=== PATIENT | male | born 1955 | race Caucasian/White ===

== ENCOUNTER 2017-01-12 10:22 | Inpatient (IN) | payer BC ==
[2017-01-12] VITALS (8 sets, daily range): BP systolic 96–113; BP diastolic 50–80; PULSE 76–87; TEMP 98.4–98.9
[~2017-01-12] VITALS: Ht 172.7 cm; Wt 72.7 kg
[~2017-01-12 10:22] MED LIST: ADVAIR IH; ASPIRIN 32325 MG/TAB PO; CALCIUM 600600 M2 PO; CALCIUM PO; CENTRUM SILVER1 CTB PO; CENTRUM SILVER1 TAB PO; CIPRO 500MG TA500 MG PO; DIOVAN 80MG80 MG PO; DIOVAN80 MG PO; GLUCOSAMINE & C1 CA1 PO; GLUCOSAMINE & C1 TER PO; LASIX 20MG TABL20 MG PO; LUPRON DEPOT45 MG INJ; PERCOCET 325 MG1 TA2 PO; SENOKOT S 50 MG1 TAB PO; XARELTO15 MG PO; XARELTO20 MG PO
[2017-01-12] MEDS ORDERED: PREDNISONE10 MG PO (10:29)
[2017-01-12 11:14] LABS: ADJUSTED CALCIUM 9.3 mg/dL (8.4-10.2); ALBUMIN 3.6 gm/dL (3.5-5.0); BILIRUBIN,TOTAL 0.7 mg/dL (0.0-1.0); CREATININE, serum 1.33 mg/dL (0.66-1.25); POTASSIUM 3.4 mmol/L (3.4-5.0); TOTAL PROTEIN 6.1 gm/dL (6.4-8.2)
[2017-01-12 11:19] LABS: MEAN CELL VOLUME 82 fl (80.0-100.0); MEAN CORPUSCULAR HGB CONC 31 g/dl (33.0-37.0); MEAN PLATELET VOLUME 11.3 fl (7.4-10.4); PLATELET COUNT 197 K/mm3 (130-400); RED BLOOD COUNT 3.08 M/mm3 (4.20-5.60); REDCELL DISTRIBUTION WIDTH-CV 14.9 % (11.5-14.5); WHITE BLOOD COUNT 8.9 K/mm3 (4.8-10.8)
[2017-01-12 11:32] LABS: ADD PATHOLOGY DIFF REVIEW NO; HEMATOCRIT 25.3 % (42.0-52.0); HEMOGLOBIN 7.9 g/dl (13.5-18.0); MEAN CORPUSCULAR HEMOGLOBIN 26 pg (27.0-31.0)
[2017-01-12 11:57] LABS: BAND 35 % (0-10); NEUTROPHILS 56 % (42.0-75.2); TOTAL CELLS COUNTED 100
[2017-01-12 12:20] LABS: PH 5 (5-8); SQUAMOUS EPITHELIAL 0-2 /hpf; URINE APPEARANCE Clear; URINE BACTERIA Rare /hpf; URINE BILIRUBIN Negative (NEGATIVE); URINE BLOOD 3+ (NEGATIVE); URINE COLOR Amber; URINE GLUCOSE Negative (NEGATIVE); URINE KETONE Trace (NEGATIVE); URINE RBC >50 /hpf; URINE UROBILINOGEN Negative (NEGATIVE); URINE WBC 20-50 /hpf
[2017-01-13 04:07] VITALS: BP 120/88; PULSE 76; TEMP 99.4
[2017-01-13 07:38] VITALS: BP 129/66; PULSE 71; TEMP 99.2
[2017-01-13 11:19] VITALS: BP 119/72; PULSE 74; TEMP 98.6
[2017-01-13 11:54] LABS: ADD PATHOLOGY DIFF REVIEW NO
[2017-01-13 12:06] LABS: MEAN CELL VOLUME 82 fl (80.0-100.0); MEAN CORPUSCULAR HGB CONC 32 g/dl (33.0-37.0); MEAN PLATELET VOLUME 11.1 fl (7.4-10.4); PLATELET COUNT 154 K/mm3 (130-400); REDCELL DISTRIBUTION WIDTH-CV 15.9 % (11.5-14.5); WHITE BLOOD COUNT 7.2 K/mm3 (4.8-10.8)
[2017-01-13 12:07] LABS: HEMATOCRIT 27.9 % (42.0-52.0); HEMOGLOBIN 8.8 g/dl (13.5-18.0); MEAN CORPUSCULAR HEMOGLOBIN 26 pg (27.0-31.0)
[2017-01-13 12:09] LABS: CALCIUM 7.8 mg/dL (8.4-10.2); CREATININE, serum 0.76 mg/dL (0.66-1.25); MAGNESIUM 1.8 mg/dL (1.6-2.3); POTASSIUM 3.3 mmol/L (3.4-5.0)
[2017-01-13 14:05] LABS: BAND 26 % (0-10); NEUTROPHILS 69 % (42.0-75.2); TOTAL CELLS COUNTED 100
[2017-01-13 14:06] LABS: ANISOCYTOSIS 1+; PLATELET ESTIMATE NORMAL (NORMAL)
[2017-01-13] MEDS ORDERED: PRILOSEC 20MG20 MG PO (14:25)
[2017-01-13] MEDS ORDERED: OMNICEF 300MG300 MG PO (14:25)
== END 2017-01-13 16:00 | disposition home or self-care (01) | DRG 872 ==
LOC: COL.ER 10:22 → MEDICAL 12:42
PROVIDERS: Emergency Medicine; Internal Medicine
DX: A41.9 Sepsis, unspecified organism (principal); N39.0 Urinary tract infection, site not specified; N17.9 Acute kidney failure, unspecified; N13.6 Pyonephrosis; C61 Malignant neoplasm of prostate; D50.0 Iron deficiency anemia secondary to blood loss (chronic); I10 Essential (primary) hypertension; J45.909 Unspecified asthma, uncomplicated
CPT/HCPCS: 99239; J0696; J7030; J7512; P9016

== ENCOUNTER 2017-01-16 12:05 | Day surgery (SDC) | payer BC ==
[~2017-01-16] VITALS: Ht 172.7 cm; Wt 71.9 kg
[~2017-01-16 12:05] MED LIST changes: +OMNICEF 300MG300 MG PO; +PREDNISONE10 MG PO; +PRILOSEC 20MG20 MG PO
[2017-01-16 13:10] VITALS: BP 140/78; PULSE 69; TEMP 98.6
[2017-01-16] MEDS ORDERED: PREDNISONE 5MG5 MG PO (13:32)
[2017-01-16] MEDS ORDERED: XARELTO20 MG PO (13:32)
[2017-01-16] MEDS ORDERED: MULTI VITAMINS1 TAB PO (13:34)
[2017-01-16] MEDS ORDERED: GLUCOSAMINE & C1 CA1 PO (13:38)
[2017-01-16 14:47] VITALS: TEMP 98.7
[2017-01-16 15:35] VITALS: BP 149/81; PULSE 70
[2017-01-16 15:50] VITALS: BP 142/74; PULSE 88
[2017-01-16] MEDS ORDERED: NORCO 325 MG-51 TAB PO (15:56)
[2017-01-16] MEDS ORDERED: SENOKOT8.6 MG (15:57)
[2017-01-16] MEDS ORDERED: PYRIDIUM 100MG100 MG PO (16:04)
[2017-01-16 16:05] VITALS: BP 129/72; PULSE 69
== END 2017-01-16 16:24 | disposition home or self-care (01) ==
LOC: SDCO 12:05
DX: N13.1 Hydronephrosis with ureteral stricture, not elsewhere classified (principal); I10 Essential (primary) hypertension; E78.5 Hyperlipidemia, unspecified; Z85.46 Personal history of malignant neoplasm of prostate; F17.210 Nicotine dependence, cigarettes, uncomplicated
CPT/HCPCS: C1769; C1894; C2617; J0690; J1100; J2405; J2704; J3010; Q9967

== ENCOUNTER 2017-02-21 07:08 | Day surgery (SDC) | payer BC ==
[~2017-02-21] VITALS: Ht 172.7 cm; Wt 71.8 kg
[~2017-02-21 07:08] MED LIST changes: +MULTI VITAMINS1 TAB PO; +NORCO 325 MG-51 TAB PO; +PREDNISONE 5MG5 MG PO; +PYRIDIUM 100MG100 MG PO; +SENOKOT8.6 MG
[2017-02-21] MEDS ORDERED: PROFERRIN ES12 MG PO (07:49)
[2017-02-21] MEDS ORDERED: ASPIRIN 32325 MG/TAB PO (07:50)
[2017-02-21 08:11] VITALS: BP 135/75; PULSE 69; TEMP 98.5
[2017-02-21 09:05] VITALS: BP 134/79; PULSE 73; TEMP 97.6
[2017-02-21 09:20] VITALS: BP 142/84; PULSE 64
[2017-02-21 12:54] VITALS: BP 132/76; PULSE 65
== END 2017-02-21 09:40 | disposition home or self-care (01) ==
LOC: SDCO 07:08
DX: K25.7 Chronic gastric ulcer without hemorrhage or perforation (principal); D50.0 Iron deficiency anemia secondary to blood loss (chronic); R19.5 Other fecal abnormalities; I10 Essential (primary) hypertension; Z85.46 Personal history of malignant neoplasm of prostate; Z79.52 Long term (current) use of systemic steroids; Z79.899 Other long term (current) drug therapy; Z87.11 Personal history of peptic ulcer disease
CPT/HCPCS: J2250; J3010; J7030

== ENCOUNTER 2017-05-23 07:09 | Day surgery (SDC) | payer BC ==
[~2017-05-23] VITALS: Ht 172.7 cm; Wt 73.2 kg
[~2017-05-23 07:09] MED LIST changes: +PROFERRIN ES12 MG PO
[2017-05-23 07:38] VITALS: BP 158/85; PULSE 76; TEMP 98.2
[2017-05-23 10:30] VITALS: BP 143/84; PULSE 79; TEMP 97.9
[2017-05-23 10:45] VITALS: BP 147/75; PULSE 88
[2017-05-23 11:00] VITALS: BP 147/75; PULSE 81
== END 2017-05-23 11:15 | disposition home or self-care (01) ==
LOC: SDCO 07:09
DX: N13.5 Crossing vessel and stricture of ureter without hydronephrosis (principal); D64.9 Anemia, unspecified; J45.909 Unspecified asthma, uncomplicated; E78.5 Hyperlipidemia, unspecified; I10 Essential (primary) hypertension; N40.0 Benign prostatic hyperplasia without lower urinary tract symptoms; F17.210 Nicotine dependence, cigarettes, uncomplicated; Z90.79 Acquired absence of other genital organ(s); Z85.46 Personal history of malignant neoplasm of prostate; Z86.718 Personal history of other venous thrombosis and embolism; Z83.3 Family history of diabetes mellitus; Z80.42 Family history of malignant neoplasm of prostate; Z83.49 Family history of other endocrine, nutritional and metabolic diseases; Z83.79 Family history of other diseases of the digestive system; Z82.49 Family history of ischemic heart disease and other diseases of the circulatory system
CPT/HCPCS: C1769; C2617; J0360; J0690; J1100; J2405; J2704; J3010; J7030; Q9967

== ENCOUNTER 2017-12-23 10:53 | Day surgery (SDC) | payer BC ==
[2017-12-23] VITALS (7 sets, daily range): BP systolic 154–198; BP diastolic 48–99; PULSE 60–76; TEMP 98.3
[~2017-12-23] VITALS: Ht 172.8 cm; Wt 71.6 kg
[2017-12-23 11:35] LABS: HEMOGLOBIN 12.3 g/dl (13.5-18.0); MEAN CELL VOLUME 85 fl (80.0-100.0); MEAN CORPUSCULAR HEMOGLOBIN 29 pg (27.0-31.0); MEAN CORPUSCULAR HGB CONC 34 g/dl (33.0-37.0); PLATELET COUNT 176 K/mm3 (130-400); RED BLOOD COUNT 4.22 M/mm3 (4.20-5.60); REDCELL DISTRIBUTION WIDTH-CV 13.4 % (11.5-14.5)
[2017-12-23 11:36] LABS: HEMATOCRIT 35.9 % (42.0-52.0)
[2017-12-23 11:38] LABS: PROTHROMBIN TIME 11.4 SECONDS (9.7-12.8)
[2017-12-23 11:44] LABS: CREATININE, serum 1.13 mg/dL (0.66-1.25)
== END 2017-12-23 14:52 | disposition home or self-care (01) ==
LOC: COL.CAR 10:53
PROVIDERS: Radiology Diagnostic Radiology
DX: N13.1 Hydronephrosis with ureteral stricture, not elsewhere classified (principal)
CPT/HCPCS: C1729; C1769; C1894; J0690; J2250; J3010; Q9967

== ENCOUNTER 2018-01-06 09:08 | Day surgery (SDC) | payer BC ==
[~2018-01-06] VITALS: Ht 172.7 cm; Wt 73.0 kg
[2018-01-06 10:03] VITALS: BP 126/79; PULSE 77; TEMP 97.9
[2018-01-06 11:33] VITALS: TEMP 97.5
[2018-01-06 11:50] VITALS: BP 151/88; PULSE 60
[2018-01-06 12:05] VITALS: BP 152/83; PULSE 78
[2018-01-06] MEDS ORDERED: NORCO 325 MG-51 TAB PO (12:19)
[2018-01-06] MEDS ORDERED: SENOKOT S 50 MG1 TAB PO (12:19)
[2018-01-06 12:20] VITALS: BP 148/80; PULSE 77
[2018-01-06] MEDS ORDERED: PYRIDIUM 100MG100 MG (12:20)
[2018-01-06 14:20] VITALS: BP 153/87; PULSE 70
== END 2018-01-06 12:36 | disposition home or self-care (01) ==
LOC: SDCO 09:08
DX: N13.5 Crossing vessel and stricture of ureter without hydronephrosis (principal); Z85.46 Personal history of malignant neoplasm of prostate; Z93.6 Other artificial openings of urinary tract status; Z92.3 Personal history of irradiation; Z79.82 Long term (current) use of aspirin; K21.9 Gastro-esophageal reflux disease without esophagitis; F17.210 Nicotine dependence, cigarettes, uncomplicated; M54.5 Low back pain; D64.9 Anemia, unspecified; Z86.718 Personal history of other venous thrombosis and embolism; E78.5 Hyperlipidemia, unspecified; J45.909 Unspecified asthma, uncomplicated; M19.90 Unspecified osteoarthritis, unspecified site; N39.46 Mixed incontinence; N13.39 Other hydronephrosis
CPT/HCPCS: C1769; J0690; J1100; J2405; J2704; J3010; J7120

== ENCOUNTER → 2018-03-25 | Outpatient (CLI) | payer BC ==
[~2018-03-25] VITALS: Ht 172.7 cm; Wt 74.2 kg
[~2018-03-25] MED LIST changes: +NATURAL IRON65 MG PO; +PYRIDIUM 100MG100 MG
[2018-03-25 09:41] VITALS: BP 135/82; PULSE 65
[2018-03-25 10:05] VITALS: BP 91/60; PULSE 72
[2018-03-25 10:10] VITALS: BP 151/97; PULSE 66
[2018-03-25 10:25] VITALS: BP 155/88; PULSE 66
[2018-03-25 10:30] VITALS: BP 148/96; PULSE 73
[2018-03-25 10:35] VITALS: BP 161/98; PULSE 76
== END ==
LOC: COL.RAD 09:10
DX: N13.39 Other hydronephrosis (principal); Q62.39 Other obstructive defects of renal pelvis and ureter

== ENCOUNTER 2018-07-15 16:54 | Emergency (ER) | payer MEDICARE, BC ==
[~2018-07-15] VITALS: Ht 172.7 cm; Wt 68.2 kg
[2018-07-15 16:58] VITALS: TEMP 98.3
[2018-07-15 17:33] LABS: COLLECTION METHOD CATHETER
[2018-07-15] MEDS ORDERED: LUPRON DEPOT11.25 M3 IM (17:42)
[2018-07-15 17:46] LABS: MUCOUS Present /lpf; PH 6 (5-8); SQUAMOUS EPITHELIAL None Seen /hpf; URINE APPEARANCE Cloudy; URINE BACTERIA Rare /hpf; URINE BILIRUBIN Negative (NEGATIVE); URINE BLOOD 2+ (NEGATIVE); URINE COLOR Yellow; URINE GLUCOSE Negative (NEGATIVE); URINE KETONE Negative (NEGATIVE); URINE LEUKOCYTE ESTERASE Trace (NEGATIVE); URINE NITRATE Negative (NEGATIVE); URINE PROTEIN(semi-quant) 1+ (NEGATIVE); URINE UROBILINOGEN Negative (NEGATIVE)
[2018-07-15 18:09] LABS: BASO % 0.3 % (0.0-2.0); EOS # 0.1 (0.0-0.7); EOS % 1.3 % (0-4.0); GRAN # 7.1 (1.4-6.5); GRAN % 81.4 % (42.2-75.2); HEMATOCRIT 38.5 % (42.0-52.0); HEMOGLOBIN 13.3 g/dl (13.5-18.0); LYMPH # 0.9 (1.2-3.4); LYMPH % 10.7 % (20.0-51.0); MEAN CELL VOLUME 85 fl (80.0-100.0); MEAN CORPUSCULAR HEMOGLOBIN 29 pg (27.0-31.0); MEAN CORPUSCULAR HGB CONC 35 g/dl (33.0-37.0); MEAN PLATELET VOLUME 10.3 fl (7.4-10.4); MONO # 0.5 (0.1-0.6); MONO % 6.2 % (1.7-9.3); PLATELET COUNT 201 K/mm3 (130-400); RED BLOOD COUNT 4.55 M/mm3 (4.20-5.60)
[2018-07-15 18:17] LABS: CALCIUM 9.2 mg/dL (8.4-10.2); CREATININE, serum 0.93 mg/dL (0.66-1.25); POTASSIUM 3.8 mmol/L (3.4-5.0)
[2018-07-15] MEDS ORDERED: FLOMAX 0.40.4 MG/CAP PO (19:10)
[2018-07-15] MEDS ORDERED: CEPHALEXIN500 M1 PO (19:10)
[2018-07-15 19:24] VITALS: BP 159/92; PULSE 83
== END 2018-07-15 20:11 | disposition home or self-care (01) ==
LOC: COL.ER 16:54
PROVIDERS: Emergency Medicine
DX: N39.0 Urinary tract infection, site not specified (principal); Z79.82 Long term (current) use of aspirin

== ENCOUNTER 2022-01-21 08:11 | Outpatient (RCR) | payer MEDICARE, BC ==
[~2022-01-21] VITALS: Ht 172.7 cm; Wt 70.1 kg
[~2022-01-21 08:11] MED LIST changes: +ASPIRIN E.C. 8181 MG PO; +CEPHALEXIN500 M1 PO; +FLOMAX 0.40.4 MG/CAP PO; +LUPRON DEPOT11.25 M3 IM
[2022-01-21] MEDS ORDERED: PRINIVIL10 MG PO (09:27)
[2022-01-21] MEDS ORDERED: CALCIUM 600MG+D1 TAB PO (09:27)
[2022-01-21] MEDS ORDERED: TYLENOL 8 HR PO (09:29)
[2022-01-21] MEDS ORDERED: IMODIUM 2MG CAPS2 MG PO (09:29)
[2022-01-21] MEDS ORDERED: ZYRTEC5 MG PO (09:44)
[2022-01-21 10:16] VITALS: BP 135/78; PULSE 75; TEMP 98.6
[2022-01-21 10:31] VITALS: BP 145/79; PULSE 70; TEMP 98.4
[2022-01-21 10:46] VITALS: BP 148/78; PULSE 67; TEMP 98.4
[2022-01-21 11:16] VITALS: BP 149/84; PULSE 74; TEMP 98.8
[2022-01-21 12:10] VITALS: BP 127/78; PULSE 70; TEMP 98.4
== END 2022-01-21 12:57 | disposition home or self-care (01) ==
LOC: EUO 08:11
DX: C61 Malignant neoplasm of prostate (principal); C64.9 Malignant neoplasm of unspecified kidney, except renal pelvis
CPT/HCPCS: J1644; J7050; P9016